=== PATIENT | female | born 1995 | race Two or more races ===

== ENCOUNTER → 2021-11-13 11:10 | Outpatient (BNVA) | payer OTHER, SELFPAY | PROVIDERS: PCP Internal Medicine; Referring Provider Internal Medicine; Visit Provider Physician Assistant Surgical | DX: E66.01 Morbid (severe) obesity due to excess calories (principal); Z68.41 Body mass index [BMI] 40.0-44.9, adult | CPT/HCPCS: 99202 ==

== ENCOUNTER 2021-11-16 12:46 | Outpatient (REF) | payer OTHER, SELFPAY ==
--- NOTE | ~2021-11-16 | XR_ITS ---
EXAMINATION: XR CHEST CLINICAL INFORMATION: Preop. Obesity COMPARISON: None TECHNIQUE: 2 views of the chest were obtained. FINDINGS: No acute significant abnormality is noted involving the heart, lungs, mediastinum, bony thorax or soft tissues. There is a convex right curvature of the dorsal spine estimated at 15 degrees XR/XR chest 2V IMPRESSION: No acute disease
--- NOTE | 2021-11-16 13:05 | ECG_ITS ---
Test Reason : obesity Blood Pressure : / mmHG Vent. Rate : 081 BPM Atrial Rate : 081 BPM P-R Int : 138 ms QRS Dur : 068 ms QT Int : 368 ms P-R-T Axes : 014 021 019 degrees QTc Int : 427 ms Normal sinus rhythm Normal ECG No previous ECGs available Referred By: Mahin Forrester Electronically Signed By:MIRELLA REIS
[2021-11-16 13:06] LABS: MANUAL DIFF FLAG NO
[2021-11-16 14:00] LABS: Basophils Absolute Auto 0.1 X10*3/uL (0.0-0.2); Basophils Percent Auto 1.3 % (0-2); Eosinophils Absolute Auto 0.2 X10*3/uL (0.0-0.4); Eosinophils Percent Auto 2.6 % (0-4); Hematocrit 39.2 % (37.0-47.0); Hemoglobin 11.6 g/dl (12.0-16.0); Imm Gran Abs Auto 0.02 X10*3/uL (0.00-0.03); Imm Gran Pct Auto 0.3 % (0.0-0.4); Lymphocytes Absolute Auto 1.9 X10*3/uL (1.2-4.9); Lymphocytes Percent Auto 30.3 % (20-40); Mean Corpuscular HGB Conc 29.6 g/dl (31.0-35.0); Mean Corpuscular Hemoglobin 23.4 pg (27.0-33.0); Mean Corpuscular Volume 79.2 fL (80.0-98.0); Monocytes Absolute Auto 0.3 X10*3/uL (0.1-1.2); Monocytes Percent Auto 5.4 % (2-11); Neutrophils Absolute Auto 3.8 x10*3/uL (2.0-8.3); Neutrophils Percent Auto 60.1 % (45-73); Platelet Count 439 X10*3/uL (160-400); Red Blood Count 4.95 X10*6/uL (4.20-5.50); Red Cell Distribution Width 15.7 % (11.0-16.0); White Blood Count 6.2 X10*3/uL (4.8-10.8)
[2021-11-16 14:09] LABS: Estimated Average Glucose 148 mg/dL; Hemoglobin A1c % 6.8 %
[2021-11-16 14:53] LABS: Alanine Aminotransferase 23 U/L (0-31); Albumin Level 4.5 g/dL (3.5-5.0); Alkaline Phosphatase 64 U/L (39-117); Anion Gap 15 (12-20); Aspartate Amino Transferase 19 U/L (5-31); Bilirubin Total 0.2 mg/dL (0.0-1.0); Blood Urea Nitrogen 10 mg/dL (9-16); C Reactive Protein 0.94 mg/dL (< or = 0.50); Calcium 9.5 mg/dL (8.4-10.2); Carbon Dioxide 25 mmol/L (22-29); Chloride 104 mmol/L (96-108); Cholesterol 222 mg/dL; Estimated Glomerular Filt Rate > 60; Glucose Random 196 mg/dL (60-115); HDL Cholesterol 40 mg/dL; Iron 31 mcg/dL (30-160); LDL Cholesterol Calculated 164 mg/dl; Percent Iron Saturation 7 % (15-50); Potassium 4.9 mmol/L (3.3-5.1); Sodium 139 mmol/L (135-145); Total Iron Binding Capacity 454 mcg/dL (228-428); Total Protein 7.5 g/dL (6.5-8.0); Triglycerides 93 mg/dL; Unsaturated Iron Binding 423 ug/dL
[2021-11-16 15:04] LABS: Ferritin 5 ng/mL (10-122); Insulin 96 uU/mL (2-29); TSH reflex Free T4 10.13 uIU/mL (0.32-4.0); Vitamin D 25-OH Total 27.8 ng/mL (>30)
[2021-11-16 15:36] LABS: Folate 17.4 ng/mL (> or = 4.0); Vitamin B12 561 pg/mL (200-900)
[2021-11-16 15:39] LABS: Free T4 (Free Thyroxine) 0.97 ng/dL (0.71-1.85)
[2021-11-17 11:02] LABS: Calcium (PTHI) 9.4 mg/dL (8.6-10.2); PTHI 57 pg/mL (16-77)
[2021-11-20 01:47] LABS: Zinc 87 mcg/dL (60-130)
[2021-11-20 10:26] LABS: Vitamin A 29 mcg/dL (38-98)
[2021-11-20 13:21] LABS: Vitamin B1 14 nmol/L (8-30)
== END 2021-11-16 12:47 | disposition home or self-care (01) ==
LOC: HO.LAB 12:46
PROVIDERS: PCP Internal Medicine; Visit Provider Physician Assistant Surgical
DX: E66.01 Morbid (severe) obesity due to excess calories (principal)
CPT/HCPCS: 36415; 71046; 80053; 80061; 82306; 82607; 82728; 82746; 83036; 83525; 83540; 83970; 84425; 84439; 84443; 84590; 84630; 85025; 86140; 93005

== ENCOUNTER 2021-11-25 11:08 | Outpatient (REF) | payer OTHER, SELFPAY ==
[2021-11-26 13:02] LABS: H Pylori Breath Test Negative (Negative)
== END 2021-11-25 11:09 | disposition home or self-care (01) ==
LOC: HO.LNP 11:08
PROVIDERS: PCP Internal Medicine; Referring Provider Internal Medicine; Visit Provider Physician Assistant Surgical
DX: E66.01 Morbid (severe) obesity due to excess calories (principal)
CPT/HCPCS: 83013; 99211

== ENCOUNTER → 2021-12-09 10:11 | Outpatient (BNVA) | payer OTHER, SELFPAY | PROVIDERS: Referring Provider Physician Assistant Surgical; Visit Provider Dietitian, Registered | DX: E66.9 Obesity, unspecified (principal); Z71.3 Dietary counseling and surveillance | CPT/HCPCS: 97802 ==

== ENCOUNTER → 2021-12-14 10:00 | Outpatient (BNVA) | payer OTHER, SELFPAY | PROVIDERS: Referring Provider Physician Assistant Surgical; Visit Provider Counselor Mental Health | DX: F43.21 Adjustment disorder with depressed mood (principal); E66.01 Morbid (severe) obesity due to excess calories; E10.9 Type 1 diabetes mellitus without complications | CPT/HCPCS: 90791 ==

== ENCOUNTER 2022-01-01 09:03 | Outpatient (REF) | payer OTHER, SELFPAY ==
--- NOTE | ~2022-01-01 | US_ITS ---
EXAMINATION: US COMPLETE ABDOMEN WITH LIVER ELASTOGRAPHY CLINICAL INFORMATION: Morbid obesity. COMPARISON: None. TECHNIQUE: Real-time imaging of the abdominal viscera. Noninvasive ultrasound liver fibrosis assessment is performed using Sandra ElastPQ point quantification shear wave elastography (2D-SWE) with a C5-2 MHz transducer. Multiple elastography samples are obtained. FINDINGS: PANCREAS: Normal. The visualized pancreatic head and body are normal in appearance. The remainder of the pancreas is obscured from visualization by the overlying bowel gas. ABDOMINAL AORTA: The proximal and mid aortic segments are normal in caliber. The distal segment is obscured by overlapping bowel gas. INFERIOR VENA CAVA: Visualized portions are normal. LIVER: Normal. The liver demonstrates normal size, contour and echogenicity. No focal lesion or intrahepatic biliary duct dilatation. The right lobe measures 16.6 cm in length. The left lobe measures 11.1 cm in length. Portal flow is towards the liver (hepatopetal). Shear wave liver elastography median stiffness is 1.54 m/s (reference: normal median stiffness is 1.3 m/s or less). IQR/median stiffness to assess sampling precision is 0.06 (reference: good quality data set is IQR/median stiffness of 0.15 or less). GALLBLADDER: A 4 mm nonmobile polyp is incidentally seen. The gallbladder is physiologically distended without evidence of stones, sludge, wall thickening or pericholecystic fluid. COMMON BILE DUCT: Normal in caliber measuring 0.2 cm in diameter. RIGHT KIDNEY: Normal. No hydronephrosis. No renal calculi or focal parenchymal lesions. The kidney measures 10.9 cm in maximum dimension. LEFT KIDNEY: Normal. No hydronephrosis. No renal calculi or focal parenchymal lesions. The kidney measures 11.6 cm in maximum dimension. SPLEEN: Normal. The spleen measures 10.7 cm in maximum dimension. FREE FLUID: None. US/US abdomen comp w elastography IMPRESSION: 1. There is generalized increase in hepatic echotexture, consistent with fatty infiltration or hepatocellular disease. Please correlate clinically. No focal hepatic mass or intrahepatic biliary dilatation is seen. 2. Liver elastography: In the absence of other known clinical signs, measurements rule out compensated advanced chronic liver disease. If there are known clinical signs, further testing may be needed for confirmation. 3. A 4 mm nonmobile gallbladder polyp is incidentally noted. 4. Technically limited ultrasound examination of the pancreatic tail and distal abdominal aorta. REFERENCE: Society of Radiologists in Ultrasound Liver Stiffness Thresholds (2020): LIVER STIFFNESS THRESHOLDS: *Liver Stiffness equal or less than 1.3 m/s: High probability of being normal. *Liver Stiffness less than 1.7 m/s: In the absence of other known clinical signs, rules out compensated advanced chronic liver disease. *Liver Stiffness 1.7-2.1 m/s: Suggestive of compensated advanced chronic liver disease but need further test for confirmation. *Liver Stiffness over 2.1 m/s: Rules in compensated advanced chronic liver disease. *Liver Stiffness over 2.4 m/s: Suggestive of clinically significant portal hypertension. QUALITY OF DATA SET: *IQR/Median value equal or less than 0.15 implies a quality data set. *IQR/Median value over 0.15 implies a poor quality data set. SIGNIFICANT CHANGE FROM PRIOR EXAM: Significant change if liver stiffness measurement is 10% or greater from prior exam. OTHER CONSIDERATIONS: The stage of liver fibrosis may be overestimated in the setting of acute hepatitis, liver inflammation, elevated liver function tests, hepatic vascular congestion, obstructive cholestasis, non-fasting state, and infiltrative diseases such as amyloidosis and lymphoma. In some patients with NAFLD, the liver stiffness thresholds for compensated advanced chronic liver disease may be lower. In causes other than viral hepatitis and NAFLD, liver stiffness thresholds are not well established.
--- NOTE | ~2022-01-01 | FL_ITS ---
EXAMINATION: XR FLUOROSCOPY UPPER GI WITH AIR CLINICAL INFORMATION: Preop. Diabetes. History of gastroparesis. COMPARISON: None TECHNIQUE: Upper GI using thin and thick barium and effervescent granules. FINDINGS: Esophageal motility is normal. No hernia is seen. There is mild gastroesophageal reflux. The stomach and duodenum are normal-appearing. No fold thickening, mass, ulcer or stricture is seen. Contrast passes through the stomach into the small bowel without evidence of gastroparesis. FLUOROSCOPY TIME: 0.4 minutes DOSE AREA PRODUCT: 5.9 jo per centimeter squared. 20 saved fluoroscopic images. FL/FL upper GI w air IMPRESSION: Mild gastroesophageal reflux otherwise unremarkable exam.
== END 2022-01-01 09:04 | disposition home or self-care (01) ==
LOC: HO.US 09:03
PROVIDERS: Visit Provider Physician Assistant Surgical
DX: E66.01 Morbid (severe) obesity due to excess calories (principal)
CPT/HCPCS: 74246; 76705; 76981

== ENCOUNTER 2022-02-11 06:41 | Inpatient (IN) | payer OTHER, SELFPAY ==
[2022-02-02 12:44] VITALS: BMI 40.4
[2022-02-03 10:39] LABS: MANUAL DIFF FLAG NO
[2022-02-03 11:43] LABS: INTERNATIONAL NORM RATIO 1.2 (0.9-1.1); Prothrombin Time 13.3 SEC (10.0-13.1)
[2022-02-03 11:45] LABS: Basophils Absolute Auto 0.1 X10*3/uL (0.0-0.2); Eosinophils Absolute Auto 0.1 X10*3/uL (0.0-0.4); Eosinophils Percent Auto 2.7 % (0-4); Hematocrit 41.2 % (37.0-47.0); Hemoglobin 12.5 g/dl (12.0-16.0); Imm Gran Abs Auto 0.01 X10*3/uL (0.00-0.03); Imm Gran Pct Auto 0.2 % (0.0-0.4); Lymphocytes Absolute Auto 1.8 X10*3/uL (1.2-4.9); Lymphocytes Percent Auto 34.7 % (20-40); Mean Corpuscular HGB Conc 30.3 g/dl (31.0-35.0); Mean Corpuscular Hemoglobin 25.5 pg (27.0-33.0); Mean Corpuscular Volume 83.9 fL (80.0-98.0); Mean Platelet Volume 9.3 fL (9.4-12.3); Monocytes Absolute Auto 0.4 X10*3/uL (0.1-1.2); Monocytes Percent Auto 7.6 % (2-11); Neutrophils Absolute Auto 2.8 x10*3/uL (2.0-8.3); Neutrophils Percent Auto 53.8 % (45-73); Partial Thromboplastin Time 36.2 SEC (26.0-36.4); Platelet Count 374 X10*3/uL (160-400); Red Blood Count 4.91 X10*6/uL (4.20-5.50); Red Cell Distribution Width 17.2 % (11.0-16.0); White Blood Count 5.2 X10*3/uL (4.8-10.8)
[2022-02-03 11:50] LABS: Estimated Average Glucose 148 mg/dL; Hemoglobin A1c % 6.8 %
[2022-02-03 16:01] LABS: Alanine Aminotransferase 16 U/L (0-31); Albumin Level 4.2 g/dL (3.5-5.0); Alkaline Phosphatase 71 U/L (39-117); Anion Gap 15 (12-20); Aspartate Amino Transferase 15 U/L (5-31); Bilirubin Total 0.4 mg/dL (0.0-1.0); Blood Urea Nitrogen 11 mg/dL (9-16); C Reactive Protein 0.98 mg/dL (< or = 0.50); Calcium 9.3 mg/dL (8.4-10.2); Carbon Dioxide 27 mmol/L (22-29); Chloride 105 mmol/L (96-108); Cholesterol 155 mg/dL; Creatinine Clr Calc Pharmacy 125.7; Estimated Glomerular Filt Rate > 60; Glucose Random 50 mg/dL (60-115); HDL Cholesterol 35 mg/dL; Insulin 72 uU/mL (2-29); LDL Cholesterol Calculated 106 mg/dl; Sodium 143 mmol/L (135-145); TSH reflex Free T4 5.87 uIU/mL (0.32-4.0); Total Protein 7.1 g/dL (6.5-8.0); Triglycerides 72 mg/dL
[2022-02-03 16:33] LABS: Free T4 (Free Thyroxine) 1.07 ng/dL (0.71-1.85)
--- NOTE | 2022-02-05 22:25 | P.HPSUR_ITS ---
Pre-Procedural Eval Section A Date of Service: 02/05/22 The patient is an INPATIENT: Yes The History & Physical has been completed within 30 days and I have reviewed it.: Yes Section B Chief Complaint: Morbid (severe) obesity due to excess calories Relevant Family History (Specify if Yes): No Relevant Social History: None Present Medications: None Medical History: No relevant PMH History of Previous Operations: No relevant previous surgery Allergies: Allergies Allergy/AdvReac Type Severity Reaction Status Date / Time shrimp Allergy Hives, Verified 02/03/22 11:05 Swelling, Itchy Throat insulin detemir AdvReac Intermediate Rash Verified 02/03/22 11:05 [From Levemir U-100 Insulin] metformin AdvReac Intermediate Diarrhea Verified 02/03/22 11:05 Review of Systems Sugical H&P ROS: Negative: Constitution, Cardiovascular, Respiratory, Neurological, Psychiatric, Hem-Onc, Allergic/Immunologic, Gastrointestinal, Genitourinary, Musculoskeletal, Integumentary, Endocrine and Eyes/Ear s/Nose/Throat Exam Surgical H&P Exam: Normal: HEENT, Normal: Heart, Normal: Lungs, Normal: Extremities, Normal: Abdomen, Normal: Skin and Normal: Neurological Plan Diagnosis/Plan: Unchanged I have reviewed the history and physical and performed a pertinent physical examination on my patient. No changes have occurred unless specified. Time Spent With Patient Time: Total time managing care of this patient today ____ minutes.
--- NOTE | 2022-02-10 09:36 | HO.ANESPROP2 ---
Documented by User: Amanda Rajput NP 02/10/22 09:37 HPI - Anesthesia Eval Consult details Narrative: 26yo F for Gastrectomy Sleeve,EGD,Possible Diaphragmatic Hernia,possible ventral Hernia,possible open PMFSH Active Problems Active Problems: All Active Problems (Updated 02/02/22 @ 12:43 by Shreya Lazaro, [place]) Insulin dependent type 1 diabetes mellitus (Acute) Hypercholesterolemia (Acute) Hypothyroid (Acute) Morbid obesity (Acute) Adjustment disorder with depressed mood (Acute) Insomnia (Acute) Past Medical History Medical History Acid reflux Diabetes Elevated cholesterol History of COVID-19 History of hypothyroidism Insomnia Irregular menses Obesity Family History Family History Mother Thyroid condition Father No problems noted. 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 If so, by whom?: No Are you DNR?: No Advance Directives: No Advance Directives Information Provided: Yes (Info mailed w/ pre-op instructions) Advance Directives on File: No Recently lost weight without trying: No How much weight loss: 14-23 pounds Eating poorly because of decreased appetite: No Nutrition screen score: 2 Nutrition Risks: No Nutritional Risk Patient : No FDLMP: 3 weeks ago Irreg p : No Poor oral hygiene: No (Has removable invisalign) Meds Allergies Allergy/AdvReac Type Severity Reaction Status Date / Time shrimp Allergy Hives, Verified 02/03/22 11:05 Swelling, Itchy Throat insulin detemir AdvReac Intermediate Rash Verified 02/03/22 11:05 [From Levemir U-100 Insulin] metformin AdvReac Intermediate Diarrhea Verified 02/03/22 11:05 Home Medications Medication Instructions Recorded Confirmed Last Taken Type lovastatin 40 mg tablet 40 mg PO DAILY 09/29/21 02/02/22 Unknown History insulin glargine 100 unit/mL (3 40 unit subcut BEDTIME 11/13/21 02/02/22 Unknown History mL) subcutaneous pen (Lantus Solostar U-100 Insulin) multivitamin 1 tab PO DAILY 11/13/21 02/02/22 Unknown History levothyroxine 150 mcg tablet 1 tab PO QAM 02/02/22 02/02/22 Unknown History Exam Exam Date and Time: February 10, 2022 0936 Height,Weight and Vital Signs: Height 4 ft 11 in Weight 90.718 kg Pertinent Lab Results Pertinent Lab Results: Laboratory Tests 02/03/22 02/03/22 02/03/22 10:32 10:37 10:37 WBC 5.2 RBC 4.91 Hgb 12.5 Hct 41.2 MCV 83.9 MCH 25.5 L MCHC 30.3 L RDW 17.2 H Plt Count 374 MPV 9.3 L Immature Gran % (Auto) 0.2 Neut % (Auto) 53.8 Lymph % (Auto) 34.7 Terrell % (Auto) 7.6 Eos % (Auto) 2.7 Baso % (Auto) 1.0 Lymph # (Auto) 1.8 Terrell # (Auto) 0.4 Eos # (Auto) 0.1 Baso # (Auto) 0.1 Abs Immat Gran (auto) 0.01 Absolute Neuts (auto) 2.8 Absolute Nucleated RBC 0.000 Nucleated RBC % (auto) 0.0 PT 13.3 H INR 1.2 H APTT 36.2 Sodium Potassium Chloride Carbon Dioxide Anion Gap BUN Creatinine Estim Creat Clear Calc Estimated GFR Random Glucose Estimat Average Glucose Hemoglobin A1c % Insulin Level Calcium Total Bilirubin AST ALT Alkaline Phosphatase C-Reactive Protein Total Protein Albumin Triglycerides Cholesterol LDL Cholesterol, Calc HDL Cholesterol TSH Free T4 Blood Type A Negative Antibody Screen NEGATIVE 02/03/22 02/03/22 10:37 10:37 WBC RBC Hgb Hct MCV MCH MCHC RDW Plt Count MPV Immature Gran % (Auto) Neut % (Auto) Lymph % (Auto) Terrell % (Auto) Eos % (Auto) Baso % (Auto) Lymph # (Auto) Terrell # (Auto) Eos # (Auto) Baso # (Auto) Abs Immat Gran (auto) Absolute Neuts (auto) Absolute Nucleated RBC Nucleated RBC % (auto) PT INR APTT Sodium 143 Potassium 4.0 Chloride 105 Carbon Dioxide 27 Anion Gap 15 BUN 11 Creatinine 0.66 Estim Creat Clear Calc 125.7 Estimated GFR > 60 Random Glucose 50 L* Estimat Average Glucose 148 Hemoglobin A1c % 6.8 Insulin Level 72 H Calcium 9.3 Total Bilirubin 0.4 AST 15 ALT 16 Alkaline Phosphatase 71 C-Reactive Protein 0.98 H Total Protein 7.1 Albumin 4.2 Triglycerides 72 Cholesterol 155 LDL Cholesterol, Calc 106 HDL Cholesterol 35 TSH 5.87 H Free T4 1.07 Blood Type Antibody Screen Narrative Narrative: EKG 10/2021 Vent. Rate : 081 BPM ? ? Atrial Rate : 081 BPM ?? P-R Int : 138 ms? QRS Dur : 068 ms ? ? QT Int : 368 ms ? ? ? P-R-T Axes : 014 021 019 degrees ?? QTc Int : 427 ms ? Normal sinus rhythm Normal ECG No previous ECGs available Assessment and Plan Assessment Anesthesia Assessment: Chart Reviewed Documented by User: Jhoana Peterson MD 02/11/22 08:24 [facility] Active Problems Active Problems: All Active Problems (Updated 02/02/22 @ 12:43 by Shreya Lazaro, [place]) Insulin dependent type 1 diabetes mellitus (Acute). Took full dose of insulin last night. BS 69. Patient symptomatic. D5W ordered Hypercholesterolemia (Acute) Hypothyroid (Acute) Morbid obesity (Acute) BMI 40.4 Adjustment disorder with depressed mood (Acute) Insomnia (Acute) Sleep study- Patient states was told not significant enough for diagnosis of ALMA DELIA. CPAP was not recommended. Results of sleep study not available Past Medical History Medical History Acid reflux Diabetes Elevated cholesterol History of COVID-19 History of hypothyroidism Insomnia Irregular menses Obesity Family History Family History Mother Thyroid condition Father No problems noted. 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 If so, by whom?: No Are you DNR?: No Advance Directives: No Advance Directives Information Provided: Yes (Info mailed w/ pre-op instructions) Advance Directives on File: No Recently lost weight without trying: No How much weight loss: 14-23 pounds Eating poorly because of decreased appetite: No Nutrition screen score: 2 Nutrition Risks: No Nutritional Risk Patient : No FDLMP: 3 weeks ago Irreg p : No Poor oral hygiene: No (Has removable invisalign) Meds Allergies Allergy/AdvReac Type Severity Reaction Status Date / Time shrimp Allergy Hives, Verified 02/03/22 11:05 Swelling, Itchy Throat insulin detemir AdvReac Intermediate Rash Verified 02/03/22 11:05 [From Levemir U-100 Insulin] metformin AdvReac Intermediate Diarrhea Verified 02/03/22 11:05 Home Medications Medication Instructions Recorded Confirmed Last Taken Type lovastatin 40 mg tablet 40 mg PO DAILY 09/29/21 02/02/22 Unknown History insulin glargine 100 unit/mL (3 40 unit subcut BEDTIME 11/13/21 02/02/22 Unknown History mL) subcutaneous pen (Lantus Solostar U-100 Insulin) multivitamin 1 tab PO DAILY 11/13/21 02/02/22 Unknown History levothyroxine 150 mcg tablet 1 tab PO QAM 02/02/22 02/02/22 Unknown History Exam Height,Weight and Vital Signs: Height 4 ft 11 in Weight 90.718 kg Vital Signs Temp Pulse Resp BP Pulse Ox O2 Del Method 02/11/22 07:14 98.1 F 96 15 127/84 97 Room Air Pertinent Lab Results Pertinent Lab Results: Laboratory Tests 02/03/22 02/03/22 02/03/22 10:32 10:37 10:37 WBC 5.2 RBC 4.91 Hgb 12.5 Hct 41.2 MCV 83.9 MCH 25.5 L MCHC 30.3 L RDW 17.2 H Plt Count 374 MPV 9.3 L Immature Gran % (Auto) 0.2 Neut % (Auto) 53.8 Lymph % (Auto) 34.7 Terrell % (Auto) 7.6 Eos % (Auto) 2.7 Baso % (Auto) 1.0 Lymph # (Auto) 1.8 Terrell # (Auto) 0.4 Eos # (Auto) 0.1 Baso # (Auto) 0.1 Abs Immat Gran (auto) 0.01 Absolute Neuts (auto) 2.8 Absolute Nucleated RBC 0.000 Nucleated RBC % (auto) 0.0 PT 13.3 H INR 1.2 H APTT 36.2 Sodium Potassium Chloride Carbon Dioxide Anion Gap BUN Creatinine Estim Creat Clear Calc Estimated GFR Random Glucose Estimat Average Glucose Hemoglobin A1c % Insulin Level Calcium Total Bilirubin AST ALT Alkaline Phosphatase C-Reactive Protein Total Protein Albumin Triglycerides Cholesterol LDL Cholesterol, Calc HDL Cholesterol TSH Free T4 Blood Type A Negative Antibody Screen NEGATIVE 02/03/22 02/03/22 10:37 10:37 WBC RBC Hgb Hct MCV MCH MCHC RDW Plt Count MPV Immature Gran % (Auto) Neut % (Auto) Lymph % (Auto) Terrell % (Auto) Eos % (Auto) Baso % (Auto) Lymph # (Auto) Terrell # (Auto) Eos # (Auto) Baso # (Auto) Abs Immat Gran (auto) Absolute Neuts (auto) Absolute Nucleated RBC Nucleated RBC % (auto) PT INR APTT Sodium 143 Potassium 4.0 Chloride 105 Carbon Dioxide 27 Anion Gap 15 BUN 11 Creatinine 0.66 Estim Creat Clear Calc 125.7 Estimated GFR > 60 Random Glucose 50 L* Estimat Average Glucose 148 Hemoglobin A1c % 6.8 Insulin Level 72 H Calcium 9.3 Total Bilirubin 0.4 AST 15 ALT 16 Alkaline Phosphatase 71 C-Reactive Protein 0.98 H Total Protein 7.1 Albumin 4.2 Triglycerides 72 Cholesterol 155 LDL Cholesterol, Calc 106 HDL Cholesterol 35 TSH 5.87 H Free T4 1.07 Blood Type Antibody Screen Lab Results 02/03/22 02/03/22 02/03/22 Range/Units 10:32 10:37 10:37 WBC 5.2 (4.8-10.8) X10*3/uL RBC 4.91 (4.20-5.50) X10*6/uL Hgb 12.5 (12.0-16.0) g/dl Hct 41.2 (37.0-47.0) % MCV 83.9 (80.0-98.0) fL MCH 25.5 L (27.0-33.0) pg MCHC 30.3 L (31.0-35.0) g/dl RDW 17.2 H (11.0-16.0) % Plt Count 374 (160-400) X10*3/uL MPV 9.3 L (9.4-12.3) fL Immature Gran % (Auto) 0.2 (0.0-0.4) % Neut % (Auto) 53.8 (45-73) % Lymph % (Auto) 34.7 (20-40) % Terrell % (Auto) 7.6 (2-11) % Eos % (Auto) 2.7 (0-4) % Baso % (Auto) 1.0 (0-2) % Lymph # (Auto) 1.8 (1.2-4.9) X10*3/uL Terrell # (Auto) 0.4 (0.1-1.2) X10*3/uL Eos # (Auto) 0.1 (0.0-0.4) X10*3/uL Baso # (Auto) 0.1 (0.0-0.2) X10*3/uL Abs Immat Gran (auto) 0.01 (0.00-0.03) X10*3/uL Absolute Neuts (auto) 2.8 (2.0-8.3) x10*3/uL Absolute Nucleated RBC 0.000 (0.0-0.012) X10*3/uL Nucleated RBC % (auto) 0.0 (0.0-0.2) /100WBC PT 13.3 H (10.0-13.1) SEC INR 1.2 H (0.9-1.1) APTT 36.2 (26.0-36.4) SEC Sodium (135-145) mmol/L Potassium (3.3-5.1) mmol/L Chloride (96-108) mmol/L Carbon Dioxide (22-29) mmol/L Anion Gap (12-20) BUN (9-16) mg/dL Creatinine (0.5-1.4) mg/dL Estim Creat Clear Calc Estimated GFR POC Glucose (60-115) mg/dL Random Glucose (60-115) mg/dL Estimat Average Glucose mg/dL Hemoglobin A1c % % Insulin Level (2-29) uU/mL Calcium (8.4-10.2) mg/dL Total Bilirubin (0.0-1.0) mg/dL AST (5-31) U/L ALT (0-31) U/L Alkaline Phosphatase (39-117) U/L C-Reactive Protein (< or = 0.50) mg/dL Total Protein (6.5-8.0) g/dL Albumin (3.5-5.0) g/dL Triglycerides mg/dL Cholesterol mg/dL LDL Cholesterol, Calc mg/dl HDL Cholesterol mg/dL TSH (0.32-4.0) uIU/mL Free T4 (0.71-1.85) ng/dL Urine Test (NEGATIVE) COVID-19 ([facility]) (Negative) COVID-19 Clin Com Blood Type A Negative Antibody Screen NEGATIVE 02/03/22 02/03/22 02/10/22 Range/Units 10:37 10:37 12:39 WBC (4.8-10.8) X10*3/uL RBC (4.20-5.50) X10*6/uL Hgb (12.0-16.0) g/dl Hct (37.0-47.0) % MCV (80.0-98.0) fL MCH (27.0-33.0) pg MCHC (31.0-35.0) g/dl RDW (11.0-16.0) % Plt Count (160-400) X10*3/uL MPV (9.4-12.3) fL Immature Gran % (Auto) (0.0-0.4) % Neut % (Auto) (45-73) % Lymph % (Auto) (20-40) % Terrell % (Auto) (2-11) % Eos % (Auto) (0-4) % Baso % (Auto) (0-2) % Lymph # (Auto) (1.2-4.9) X10*3/uL Terrell # (Auto) (0.1-1.2) X10*3/uL Eos # (Auto) (0.0-0.4) X10*3/uL Baso # (Auto) (0.0-0.2) X10*3/uL Abs Immat Gran (auto) (0.00-0.03) X10*3/uL Absolute Neuts (auto) (2.0-8.3) x10*3/uL Absolute Nucleated RBC (0.0-0.012) X10*3/uL Nucleated RBC % (auto) (0.0-0.2) /100WBC PT (10.0-13.1) SEC INR (0.9-1.1) APTT (26.0-36.4) SEC Sodium 143 (135-145) mmol/L Potassium 4.0 (3.3-5.1) mmol/L Chloride 105 (96-108) mmol/L Carbon Dioxide 27 (22-29) mmol/L Anion Gap 15 (12-20) BUN 11 (9-16) mg/dL Creatinine 0.66 (0.5-1.4) mg/dL Estim Creat Clear Calc 125.7 Estimated GFR > 60 POC Glucose (60-115) mg/dL Random Glucose 50 L* (60-115) mg/dL Estimat Average Glucose 148 mg/dL Hemoglobin A1c % 6.8 % Insulin Level 72 H (2-29) uU/mL Calcium 9.3 (8.4-10.2) mg/dL Total Bilirubin 0.4 (0.0-1.0) mg/dL AST 15 (5-31) U/L ALT 16 (0-31) U/L Alkaline Phosphatase 71 (39-117) U/L C-Reactive Protein 0.98 H (< or = 0.50) mg/dL Total Protein 7.1 (6.5-8.0) g/dL Albumin 4.2 (3.5-5.0) g/dL Triglycerides 72 mg/dL Cholesterol 155 mg/dL LDL Cholesterol, Calc 106 mg/dl HDL Cholesterol 35 mg/dL TSH 5.87 H (0.32-4.0) uIU/mL Free T4 1.07 (0.71-1.85) ng/dL Urine Test (NEGATIVE) COVID-19 ([facility]) Negative (Negative) COVID-19 Clin Com See Note Blood Type Antibody Screen 02/11/22 02/11/22 02/11/22 Range/Units 06:45 06:54 08:03 WBC (4.8-10.8) X10*3/uL RBC (4.20-5.50) X10*6/uL Hgb (12.0-16.0) g/dl Hct (37.0-47.0) % MCV (80.0-98.0) fL MCH (27.0-33.0) pg MCHC (31.0-35.0) g/dl RDW (11.0-16.0) % Plt Count (160-400) X10*3/uL MPV (9.4-12.3) fL Immature Gran % (Auto) (0.0-0.4) % Neut % (Auto) (45-73) % Lymph % (Auto) (20-40) % Terrell % (Auto) (2-11) % Eos % (Auto) (0-4) % Baso % (Auto) (0-2) % Lymph # (Auto) (1.2-4.9) X10*3/uL Terrell # (Auto) (0.1-1.2) X10*3/uL Eos # (Auto) (0.0-0.4) X10*3/uL Baso # (Auto) (0.0-0.2) X10*3/uL Abs Immat Gran (auto) (0.00-0.03) X10*3/uL Absolute Neuts (auto) (2.0-8.3) x10*3/uL Absolute Nucleated RBC (0.0-0.012) X10*3/uL Nucleated RBC % (auto) (0.0-0.2) /100WBC PT (10.0-13.1) SEC INR (0.9-1.1) APTT (26.0-36.4) SEC Sodium (135-145) mmol/L Potassium (3.3-5.1) mmol/L Chloride (96-108) mmol/L Carbon Dioxide (22-29) mmol/L Anion Gap (12-20) BUN (9-16) mg/dL Creatinine (0.5-1.4) mg/dL Estim Creat Clear Calc Estimated GFR POC Glucose 69 138 H (60-115) mg/dL Random Glucose (60-115) mg/dL Estimat Average Glucose mg/dL Hemoglobin A1c % % Insulin Level (2-29) uU/mL Calcium (8.4-10.2) mg/dL Total Bilirubin (0.0-1.0) mg/dL AST (5-31) U/L ALT (0-31) U/L Alkaline Phosphatase (39-117) U/L C-Reactive Protein (< or = 0.50) mg/dL Total Protein (6.5-8.0) g/dL Albumin (3.5-5.0) g/dL Triglycerides mg/dL Cholesterol mg/dL LDL Cholesterol, Calc mg/dl HDL Cholesterol mg/dL TSH (0.32-4.0) uIU/mL Free T4 (0.71-1.85) ng/dL Urine Test NEGATIVE (NEGATIVE) COVID-19 ([facility]) (Negative) COVID-19 Clin Com Blood Type Antibody Screen Airway Mallampati Class: II TM Dist: >3cm Neck ROM: Full Loose/Missing/Broken Teeth: No (Invisalign. Denies broken, loose, missing teeth) Heart: RRR Lungs: CTAB Assessment and Plan Assessment Anesthesia Assessment: Anesthesia Plan Discussed Final Anesthetic Review Family History of Problems with Anesthesia: No History of Problems with Anesthesia: No NPO: Yes ASA Class: III Final Preanesthetic Review: No Changes in Pt Med Stat, Meds/Allgs Chart Reviewed, Consent Obtained/Reviewed and Anes Risks/Benef Reviewed Patient Risk: Intermediate Procedure Risk: Intermediate Assessment/Block/Sedation in SS: Assess/Block/Sedation-SS Anesthetic Plan Anesthetic Plan: GA Disposition: Standard PACU
[2022-02-10 13:16] LABS: COVID-19 Test Negative (Negative); IDNOW Serial# BCCEAD1C
[2022-02-11] VITALS (15 sets, daily range): BP systolic 121–153; BP diastolic 68–106; PULSE 79–98; RESP 15–18; TEMP 36.7–37.4; O2SAT 93–100
--- OUTSIDE RECORDS SUMMARY | 2022-02-11 06:45 | XMS_ITS ---
:1995 Author Care Team Providers Name Role Phone STEPH MCCONNELLJARON Primary Care Provider [phone] Allergies Code Code System Name Reaction Severity Status Onset 680 RxNorm Metformin ? ? Active ? Medications Name Status Start Date Stop Date ? ? amoxicillin 875 mg tablet Active ? Not av ailable Take 1 tablet every 12 hours by oral route for 7 days. Baqsimi 3 mg/actuation nasal spray Completed ? 09/08/2021 BD Ava 2nd Gen Pen Needle 32 gauge x /32 Active ? Not available CeQur Simplicity 2 unit device Completed ? 0 09/08/2021 Dexcom G6 Sensor device Completed ? 09/09/19 Dexcom G6 Transmitter device Completed ? epinephrine 0.3 mg/0.3 mL injection, auto-injector Active ? Not available INJECT 1 PEN DIRECTED NEEDED (ANAPHYLAXIS). MUST GO TO ER AFTER USING famotidine 20 mg tablet Completed ? 09/09/19 TAKE 1 TABLET BY MOUTH 2 TIMES DAILY NEEDED FOR HEARTBURN ferrous sulfate 325 mg (65 mg iron) tablet Completed ? 09/08/2021 TAKE 1 TABLET BY MOUTH EVERY OTHER DAY Humalog KwikPen (U-100) Insulin 100 unit/mL Completed ? 09/08/2021 subcutaneous Humalog KwikPen Insulin Active ? Not avai lable ibuprofen 800 mg tablet Completed ? 09/09/19 22 TAKE 1 TABLET BY MOUTH EVERY 8 HOURS NEEDED FOR PAIN FOR UP TO 30 DAYS. Lantus Solostar U-100 Insulin Active ? No t available Lantus Solostar U-100 Insulin 100 unit/mL (3 mL) Completed ? 09/08/2021 subcutaneous pen levothyroxine Active ? Not available lovastatin Completed ? 09/08/2021 lovastatin 40 mg tablet Active ? Not avai lable norgestimate 0.25 mg-ethinyl estradiol 35 mcg tablet Completed ? 09/08/2021 TAKE 1 TABLET BY MOUTH EVERY DAY omeprazole 20 mg capsule,delayed release Completed ? 09/08/2021 TAKE 1 CAPSULE BY MOUTH EVERY DAY ondansetron 4 mg disintegrating tablet Completed ? 09/08/2021 Ozempic 0.25 mg or 0.5 mg (2 mg/1.5 mL) subcutaneous Completed ? 09/08/2021 pen injector Slow Fe 142 mg (45 mg iron) tablet,extended release Completed ? 09/08/2021 TAKE 1 TABLET BY MOUTH ON TUESDAY, DAY, AND TUESDAY FOR 24 DAYS. DO NOT TAKE WITH FOOD. Sprintec (28) Completed ? 09/08/2021 Synthroid 137 mcg tablet Active ? Not patience ilable tizanidine 4 mg tablet Completed ? 2 TAKE 1 TABLET BY MOUTH EVERY 8 HOURS NEEDED FOR MUSCLE SPASM Problems None recorded. Procedures None recorded. Results Lab Results Date Name Specimen Result Interpretation Description Value Range Status Address ? 09/08/2021 SARS CoV 2 RNA ? Result negative ? ? [facility] ([place]: [place] QL, paper roller-PCR, [address], Respiratory [facility] ield Specimen 08/30/2019 ? Hcg negative ? ? B yst [facility] Test, [place] [facility] [place] [address] [facility], [place] 08/24/2019 Culture, Urine Urine ? Specimen urine ? Fi nal [facility] Description clean Refer ence catch/mids Labora tories: tream [address], [place] ? ? Urine ? Special none ? Final [facility] Requests Referenc e Laboratori es: [address], [place] ? ? Urine ? Culture no growth ? Final [facility] ate Reference Laboratori es: [address], [place] ? ? Urine ? Report Status final ? Final [facility] 08/25/2019 Refere wve Laboratori es: [address], [place] 08/24/2019 Glucose, ? Blood 215 ? ? Byst [facility] Fingerstick, Glucose: mg/dl Feeding Blood [place]: [address] [facility], [place] 08/24/2019 Urinalysis, ? Leukocytes Negative ? ? Byst [facility] Dipstick [place]: [address], Feeding [place] ? ? ? Nitrite negative ? ? Byst U cc Feeding [place]: [address], [place] ? ? ? Urobilinogen 0.2-Normal ? ? Byst [facility] Feeding [place]: [address], [place] ? ? ? Protein Negative ? ? Byst U cc Feeding [place]: [address], [place] ? ? ? Ph 5.0 ? ? By[facility] Feeding [place]: [address], Feeding [place] ? ? ? Blood Negative(n ? ? Byst U cc on-hemolyz Feedin g ed) [place]: [address], Feeding [place] ? ? ? Specific 1.010 ? ? Byst [facility] [place] Feeding [place]: [address], Feeding [place] ? ? ? Ketone Negative ? ? Byst c Feeding [place]: [address], Feeding [place] ? ? ? Bilirubin Negative ? ? Byst [facility] Feeding [place]: [address], Feeding [place] ? ? ? Glucose 2000 or ? ? Byst [facility] more Feeding [place]: [address], Feeding [place] ? ? ? Appearance clear ? ? Byst [facility] Feeding [place]: [address], Feeding [place] ? ? ? Color yellow ? ? Byst [facility] Feeding [place]: [address], Feeding [place] ? Rapid SARS CoV ? Result positive ? ? Byst [facility] + SARS CoV 2 [place]: 57 Ag, QL [place], [address], Respiratory [place] Specimen Past Encounters Encounter Date Diagnosis Provider 09/08/2021 Acute Right Otitis Media XIMENA [place]: [address] [place] [address], Ph. [phone] Social History Tobacco Smoking Status Never Smoker Vaccine List None recorded. Plan of Care Patient Instructions Keep ears dry x 1 week Reminders Provider Appointments None recorded. ? ? Lab None recorded. ? ? Referral None recorded. ? ? Procedures None recorded. ? ? Surgeries None recorded. ? ? Imaging None recorded. ? ? Vitals 09/08/2021 03:15PM Established Patient Blood Pressure 129/85 mm[Hg] 08/24/2019 02:15PM New Patient Blood Pressure 125/83 mm[Hg]
[2022-02-11 06:49] LABS: UPreg QC Valid YES; Urine Pregnancy NEGATIVE (NEGATIVE)
[2022-02-11 07:05] LABS: Glucose, Whole Blood 69 mg/dL (60-115)
[2022-02-11] MEDS: Lactated Ringers 1,000 ML 999 ML IV (07:19)
[2022-02-11] MEDS: Dextrose 5 % 250 ML IV (07:28)
[2022-02-11 08:13] LABS: Glucose, Whole Blood 138 mg/dL (60-115)
--- NOTE | 2022-02-11 08:13 | PM.OP ---
Brief Operative Note Date of Service: 02/11/22 Pre-op diagnosis: Morbid obesity with comorbidities (see below) Post-op diagnosis: same (& extensive abdominal adhesions) Procedure: INITIAL PATIENT BMI ON PRESENTATION AT OUR OFFICE: 44.3 kg/m2 LAST BMI BEFORE SURGERY: 40.2 kg/m2 COMORBIDITIES: Type I insulin-dependent diabetes, hyperlipidemia, GERD, liver steatosis, liver fibrosis, gallbaldder polyp ?The patient presented to the Weight Management Program with significant obesity that was negatively impacting the patient's comorbidities as listed above.? The program is a phased program with a special focus on preoperative medical weight management to promote substantial weight loss and prepare the patients for the second phase of the program: bariatric surgery. The patient participated in an intensive weekly lifestyle ?intervention and exercise program during which the patient ?has lost between the initial office visit and the last preoperative visit 18.8lbs, or 8.58% of initial actual body weight. It was deemed appropriate for the patient to now have bariatric surgery. In light of the current Covid-19 pandemic and the well documented strong association of obesity and increased risk of worse outcomes if infected with Covid-19 (REFERENCES:https://pubmed.ncbi.nlm.nih.gov/18471940/,?https://pubmed.ncbi.nlm.nih.gov/98078635/), any delay in undergoing bariatric surgery may lead to the patient's worsening health condition and increased?risk of more severe Covid-19 disease if infected. In addition a recent?study from [facility] published in [facility] on 02/16/2021 ([email or web address]) found that, among patients with obesity, substantial weight loss achieved with surgery was associated with improved outcomes of COVID-19 infection. The findings suggest that obesity can be a modifiable risk factor for the severity of COVID-19 infection. In addition, the patient met the BMI-criteria for bariatric surgery based on the BMI on initial presentation. The patient should not be penalized for achieving such weight loss because ?it is not sustainable long-term without surgical intervention and it was achieved in preparation for bariatric surgery ?under my direction and based on my published research ([email or web address]).[email or web address] and?https://www.soard.org/article/[email or web address](60)12453-X/pdf) ?that a 10% preoperative weight loss improves long-term weight loss after surgery and reduces perioperative complications.? Insurance carriers such as [facility] have endorsed my recommendations ?and have included in their policies criteria to include a 10% preoperative weight loss requirement. PROCEDURE: Esophago-gastroscopy, laparoscopic lysis of adhesions, laparoscopic sleeve gastrectomy and laparoscopic gastropexy INDICATIONS: This is a 26 year-old female who was electively scheduled for laparoscopic, possibly open sleeve gastrectomy. The risks and complications of the procedure were discussed with the patient in advance, particularly the possibility of ; pulmonary embolism; staple line leak; bleeding; GERD; cardiac, pulmonary, or renal complications; as well as long-term problems such as insufficient weight loss, vitamin deficiency, strictures, or ulcers. The patient understood all the risks, and was in agreement to proceed with surgery. DESCRIPTION OF PROCEDURE: After informed consent was obtained from the patient, the patient was given preoperative antibiotics, and was transferred to the operating room. After successful induction of general anesthesia, pneumatic compression devices were placed on both lower extremities. An upper endoscopy was performed next. The oropharynx and esophagus appeared to be within normal limits. There was no diaphragmatic hernia present consistent with the findings of the preoperative upper GI. The stomach was entered. Then after all fluid and air were suctioned and the stomach was fully decompressed, the scope was withdrawn and secured in the mid esophagus. The patient was then prepped and draped in the usual sterile manner, and abdominal access was established at the right upper quadrant with the Keith technique. A 12 mm blunt port was inserted, and the abdomen was insufflated with CO2 to a pressure of 15 mmHg. Under direct visualization, additional ports were placed, specifically two 5 mm Versi-step ports to the left upper quadrant, and a 5 mm Versi-Step port to the right upper quadrant. 1% lidocaine plain was used to infiltrate all port sites as well as all fascia defects. Following that, the patient was placed in a steep reverse Trendelenburg position. An additional 5 mm port was placed to the right flank for the Mediflex retractor that was used to retract the left lobe of the liver. The gastro-esophageal fat pad was opened with the ultrasonic device (Thunderbeat, Olympus) and the anterior esophagus and hiatus were exposed. The angle of His was opened with the ultrasonic device the fundus of the stomach from any diaphragmatic and splenic attachments. I then opened the gastrocolic ligament between the transverse colon and the greater curvature of the stomach with the ultrasonic device to enter the lesser sac and facilitate the ligation of the short gastric vessels. I started at a mid-point along the greater curvature and using the Thunderbeat, all short gastric vessels were divided all the way to the angle of His until the left jeannette was completely dissected at its entirety. I then divided the gastro-colic ligament distally to a distance of about 3-4 cm proximal to the pylorus. There were extensive congenital adhesions between the pancreas and posterior gastric wall. Those were lysed completely with the ultrasonic device. The adhesions were so dense that a large upper splenic pole vessel was densely adhrerent to the posterior gastric wall. It required very careful dissection to detach it and preserve it. Additionally there were adhesions beteween the lesser sac and the left lobe of the liver which were also lysed. Adhesiolysis took approximately 60 min to complete. The stomach was then divided transversely with one Endo VALERIA-45 purple, 2 VALERIA-60 purple loads, two VALERIA-45 orange loads and one VALERIA-60 articulating orange loads using the AEON stapler and loads. Every effort was made that the gastric sleeve had a tubular shape and an even caliber throughout. Once the sleeve resection was completed, the staple line of the gastric sleeve was reinforced with Hemoclips. The resected stomach was retrieved without difficulty from the Keith port. A gastropexy was then performed in order to prevent postoperative GERD and partial gastric volvulus. Several interrupted 2.0 Surgidac sutures were placed between the sleeve's staple line and the previously divided greater omentum and gastro-colic ligament using the Endo-Stitch device. ?An upper endoscopy was performed. There was no narrowing at the GE junction. The scope was easily advanced all the way to the pylorus which was clearly visualized. There was no narrowing anywhere and the sleeve's caliber was even throughout. The sleeve's staple line was inspected and there was no evidence of ischemia, bleeding or dehiscence. At that point the gastroscope was withdrawn from the patient?s mouth while we were decompressing the bowel and the stomach from any remaining air. I looked into the lesser sac to see how the sleeve was situating and it was situating well. There was no bleeding from the staple line, spleen, or short gastric vessels. The Mediflex retractor was removed, and the undersurface of the liver was inspected and there was no bleeding. The patient was placed in supine position. I closed the fascial defect of the 12 mm port site with a figure of eight #1 Polysorb suture. Then 30cc of Ropivacaine plain with 10 mg of Dexamethasone were used to infiltrate the fascial closure as well as all skin incisions. A total of 7ml of Zynrelef was applied in the Keith wound. At this point, the abdomen was deflated, all ports were removed under direct vision, and no bleeding was noted from any of the port sites. The skin incisions were irrigated with saline and were closed with 4-0 absorbable monofilament sutures. Steri-Strips and OpSites were used to cover all incisions. The patient was extubated and was transferred in stable condition to the recovery room for further care. I was present and performed all dow parts of the procedure. Mr. Forrester was the fitter's assistant. There were no residents to assist with this case. Anton Perez MD, PhD, FACS Surgeon: Uriah Perez MD Anesthesia: GETA, local and other (TAP block and ml of Zynrelef) Was an Drywall Foreman used for this Procedure?: No Drywall Foreman: Mahin Forrester Estimated blood loss (mL): 10 Urine output (mL): 0 (No Stern to record output) Pathology: other (Stomach) Condition: stable Disposition: PACU
--- NOTE | 2022-02-11 08:17 | PM.PNGS ---
Subjective Subjective Date of Service: 02/12/22 Interval history: Patient has mild incisional pain, but was able to ambulate and use the incentive spirometer. She is tolerating phase 1 bariatric diet Physical Exam Vital Signs: Vital Signs: Last Vital Signs Temp 98.1 F 02/11/22 07:14 Pulse 96 02/11/22 07:14 Resp 15 02/11/22 07:14 BP 127/84 02/11/22 07:14 Pulse Ox 97 02/11/22 07:14 O2 Del Method 02/11/22 07:14 BMI result Body Mass Index 40.4 GI: Inspection: Yes normal to inspection, Yes incision (clean, dry and intact) and Yes obesity Palpation (GI): Soft to palpation Extrem: Right lower extremity: normal to inspection (no calf tenderness) Left lower extremity: normal to inspection (no calf tenderness) Objective Data Active Medications Lactated Ringer's (Lr) 1,000 mls @ 100 mls/hr IVCONT .Q10H BRYAN Lactated Ringer's (Lr) 1,000 mls @ 999 mls/hr IV .Q1H1M BRYAN Stop: 02/11/22 08:45 Last Admin: 02/11/22 07:19 Dose: 999 mls/hr Documented By: JUANA Dextrose ([email or web address]) 250 mls @ 0 mls/hr IV .Q0M PRN PRN Reason: Per Protocol Last Admin: 02/11/22 07:28 Dose: 250 mls/hr Documented By: JUANA Labs CBC & Chem 7: 02/12/22 05:30 02/12/22 05:30 Labs: Laboratory Results - last 24 hr 02/10/22 02/11/22 02/11/22 12:39 06:45 06:54 POC Glucose 69 Urine Test NEGATIVE COVID-19 (ALFIE) Negative COVID-19 Clin Com See Note 02/11/22 08:03 POC Glucose 138 H Urine Test COVID-19 (ALFIE) COVID-19 Clin Com Procedures Date of Service Date of Service: 02/12/22 Progress Note: A&P Assessment and plan (1) Morbid obesity: Status: Acute Assessment and Plan: s/p laparoscopic sleeve gastrectomy, lysis of adhesions and gastropexy Doing well Check am labs. If OK, will discharge home? (2) Insulin dependent type 1 diabetes mellitus: Status: Acute (3) Hypercholesterolemia: Status: Acute (4) Hypothyroid: Status: Acute (5) Steatosis, liver: Status: Acute (6) Liver fibrosis: Status: Acute (7) S/P laparoscopic sleeve gastrectomy: Status: Acute (8) Congenital intra-abdominal adhesions: Status: Acute Time Spent With Patient Time: Total time managing care of this patient today ____ minutes. Quality Stroke Does the patient have a stroke diagnosis?: No VTE Prior VTE?: No VTE Risk Level:: Surgical - moderate VTE Device Contraindication: N/A - Device Ordered VTE Drug Contraindication: Treatment Not Indicated
--- NOTE | 2022-02-11 11:32 | P.DS_ITS ---
DS: Providers Provider Date of Service: 02/12/22 Date of admission: 02/11/22 06:41 Primary care physician: Lakia Jaquez MD DS: Diagnosis Discharge Diagnosis (1) Morbid obesity: Status: Acute (2) Insulin dependent type 1 diabetes mellitus: Status: Acute (3) Hypercholesterolemia: Status: Acute (4) Hypothyroid: Status: Acute (5) Steatosis, liver: Status: Acute (6) Liver fibrosis: Status: Acute DS: Summary Hospital Course Hospital Course: ADMITTING DIAGNOSIS: morbid obesity, IDDM, hypothyroid, HLD ? DISCHARGE DIAGNOSIS: same, s/p laparoscopic sleeve gastrectomy, lysis of adhesions ? PAST SURGICAL HISTORY: tonsillectomy ? PROCEDURE: upper endoscopy, laparoscopic sleeve gastrectomy, lysis of adhesions ? DISCHARGE SUMMARY: ? History of Present Illness: ? The patient is a?26 year-old woman with a BMI of?44.2 kg/m2 and associated co- morbidities as described above. The patient had extensive work-up,lost?20.1 lbs preoperatively and was electively scheduled for laparoscopic, possible open sleeve gastrectomy and gastropexy. Risks and complications of the surgery were discussed with the patient in advance, particularly the possibility of , pulmonary embolism, anastomotic leak, bleeding, bowel injury, GERD, cardiac, renal or pulmonary complications. The patient understood all the risks and was in agreement with the surgical plan. ? Hospital Course: ? The patient underwent an uneventful laparoscopic sleeve gastrectomy with gastropexy and lysis of adhesions on the day of admission. Postoperatively, the patient was transferred to the surgical floor. The patient received IV Acetaminophen and IV dilaudid for pain control. Patient was started on bariatric phase 1 diet POD #0. On postoperative day one, the patient was feeling well without nausea, vomiting, fevers, or tachycardia. The patient had some mild incisional pain and the abdomen was soft. ? On the morning of postoperative day one, the patient was continued on 1 ounce of water or ice every half hour. During the day, the patient did fairly well, hav ing some incisional pain, but able to ambulate adequately and to tolerate liquids well. ? Since the patient is doing well, we decided that the patient was ready to be discharged. The patient was given instructions to follow-up with me next week and to call my office for any fever over 101, persistent abdominal pain, nausea, vomiting, GERD, symptoms of DVT such as calf tenderness, or leg swelling, or pulmonary embolism such as chest pain or shortness of breath. The patient was also instructed to drink 40-60 ounces of liquids per day using the 1-ounce cups. The patient had been given prescriptions for Tylenol for pain, Zofran prn for nausea, and pantoprazole and carafate previously. The patient was encouraged to ambulate and use the incentive spirometer. The patient was allowed to shower, but no baths, and encouraged to stay active at home. All of these instructions were given to the patient personally. All questions were answered and the patient understood all instructions, the instructions were also given to the patient in print. Time Spent with Patient Time attestation: Total time managing care of this patient today ____ minutes. Discharge coordination time: Less than 30 minutes Quality: Safe Use of Opioids Does Pt have an Active Cancer Diagnosis on the Problem List?: No Quality: Stroke Does the patient have a stroke diagnosis?: No Physical Exam Vital Signs: Vital Signs: Last Vital Signs Temp 98.1 F 02/11/22 07:14 Pulse 96 02/11/22 07:14 Resp 15 02/11/22 07:14 BP 127/84 02/11/22 07:14 Pulse Ox 97 02/11/22 07:14 O2 Del Method 02/11/22 07:14 BMI result Body Mass Index 40.4 DS: Data Data Completed and Pending Pending studies at discharge: Pending at discharge 02/11/22 10:21 Surgical [PTH] Routine Labs on day of discharge: Laboratory Results - last 24 hr 02/10/22 02/11/22 02/11/22 12:39 06:45 06:54 POC Glucose 69 Urine Test NEGATIVE COVID-19 ([facility]) Negative COVID-19 Clin Com See Note 02/11/22 08:03 POC Glucose 138 H Urine Test COVID-19 ([facility]) COVID-19 Clin Com Discharge Plan Discharge Anticipated Discharge Date/Time: 02/12/22 10:00 Patient Disposition: Home, Self-Care Discharge Diagnosis: s/p laparoscopic sleeve gastrectomy and lysis of adhesions Referrals: Lakia Pierce MD [Primary Care Provider] - 1 Week Discharge Medications: Continued levothyroxine 150 mcg tablet 1 tab PO QAM pantoprazole 40 mg tablet,delayed release (DR/EC) 40 mg PO DAILY Qty: 30 2RF sucralfate 100 mg/mL suspension 10 ml PO BID Qty: 400 2RF ondansetron HCl 4 mg tablet 4 mg PO Q12H Qty: 20 0RF Changed insulin glargine [Lantus Solostar U-100 Insulin] 100 unit/mL (3 mL) insulin pen 15 unit subcut BEDTIME Qty: 15 0RF Rx Instructions: discuss blood sugars with Dr Vinicio echeverria as your dose may change Held lovastatin 40 mg tablet 40 mg PO DAILY Hold Instructions: Resume on 02/15/22. Discontinued Vitron-C 65 mg iron- 125 mg tablet,delayed release (DR/EC) 1 tab PO DAILY Qty: 30 2RF Rx Instructions: swallow whole; do not chew/break/dissolve/open vitamin A palmitate 10,000 unit capsule 10,000 unit PO DAILY Qty: 30 2RF insulin lispro [Humalog KwikPen Insulin] 100 unit/mL insulin pen 0 - 20 unit subcut TID multivitamin Tablet 1 tab PO DAILY polyethylene glycol 3350 [Miralax] 17 gram powder in packet 17 g PO DAILY Qty: 14 0RF Rx Instructions: Mix each packet with 8oz of water and do 7 packets on 02/09/22 and another 7 packets on 02/10/22 Discharge Orders: Discharge Order (Routine); Ordered 02/12/22 Ordered By: Uriah Perez Activity on Discharge: No heavy lifting Stand Alone Forms: Patient Portal Discharge page Care Plan Goals: weight loss Health Concerns: morbid obesity Plan of Treatment: No tub baths, sex or returning to work until discussed at first post op appointment. No exercise, alcohol, tobacco or illegal drug use. Continue to use incentive spirometer hourly while awake. Walk in home for 5- 10 minutes every 2 hours during the first week. Follow all instructions in the bariatric handbook and call with any questions.Discharge Instructions 1. Please call your doctor or come back to the emergency room should any new symptoms arise. 2. You will receive a courtesy call from [facility] 24-48 hours after discharge. 3. Activity: abstain from alcohol, practice limited stair climbing, no bending, no driving, no exercise, no illicit substances, no lifting, no sex, no tub bath, no work. 4. Diet: continue as discussed with Dr. Perez. 5. Dressing Change/Wound Care: Your incision is covered by clear bandages and guaze underneath. If the area is tender, you may apply an ice pack for short intervals (no more than 20 minutes on, followed by at least 20 minutes off). Do not apply heat. Do not use creams, lotions, or topical antibiotics unless instructed to do so by your surgeon. These can cause infection or allergic reaction. 6. Call your doctor if: - Your temperature exceeds 101.5 F - You experience excessive pain or swelling - You have an unexpected reaction to medication - You have excessive bleeding - You experience continued vomiting/nausea - Your incision begins to separate - Your incision shows signs of infection such as increased redness, swelling, excessive pain, heat, or drainage (light blood or clear fluid is normal) 7. General instructions: No lifting greater than 5 lbs for the next 4 weeks[address] driving within 24 hours of taking narcotic pain medications. If you do not move your bowels in the next 2 days, please take milk of magnesia over the counter. Please follow the post op diet and do not advance your diet until you are seen in the office in about 2 weeks. Please walk around your home every hour or two to prevent blood clots from forming in your legs. You do not need to wake from sleeping to walk. Please sleep in a bed or couch to prevent kinking at the hips and knees. Please take your incentive spirometer (your lung fixed income director) home with you and use it for the next few days to prevent pneumonias. You may shower, no hot tubs, baths or swimming pools. Please call the office with any questions or concerns such as increasing abdominal pain, fever, chills, shortness of breath, chest pain, leg pain or swelling, or redness or drainage from your incisions. Please stay on stage 3 diet which includes sugar free clear liquids such as ice pops and jello and broth and crystal light. Avoid all carbonation. Please drink 3 protein shakes with at least 25-30 grams of protein daily or 3 of the Celebrate 4:1 shakes which can be purchased in our office. The Celebrate shakes have all of the bariatric vitamins you need if you consume these shakes. If you are drinking other protein shakes, you will need to purchase the Celebrate multivitamins and calcium that we provide in the office (they will provide all the vitamins you need). Please make sure you are consuming at least 40-60 ounces of water in addition to your 3 protein shakes daily. Do not hesitate to contact the office with any questions at . The patient's medical history has been reviewed and they are considered low risk for post op DVT and therefore DVT prophylaxis is not considered necessary. Travel after surgery was reviewed. The patient has not disclosed any travel plans during the first 30 days after surgery and they have been advised that within the first 30 days after surgery any bus, plane, train or car travel over 2 hours in duration is contraindicated due to the possibility of developing blood clots from immobility. Any travel, needs to include periods of ambulation of 10 minutes in duration every 2 hours.? The patient was instructed to discuss any plans for travel during this period with their bariatric surgeon. Assessment: stable s/p laparoscopic sleeve gastrectomy and lysis of adhesions
[2022-02-11] MEDS: Famotidine/PF 20 MG/2 ML VIAL IVPUSH ×2 (11:41→20:10)
[2022-02-11] MEDS: fentaNYL citrate/PF 100 MCG/2 ML VIAL 25 MCG IVPUSH (12:00)
[2022-02-11] MEDS: ondansetron HCL 4 MG/2 ML VIAL IVPUSH ×2 (12:07→20:11)
[2022-02-11 12:09] LABS: Anion Gap 14 (12-20); Blood Urea Nitrogen 10 mg/dL (9-16); Carbon Dioxide 25 mmol/L (22-29); Chloride 105 mmol/L (96-108); Creatinine Clr Calc Pharmacy 109.1; Estimated Glomerular Filt Rate > 60; Glucose Random 136 mg/dL (60-115); Potassium 5.2 mmol/L (3.3-5.1); Sodium 139 mmol/L (135-145)
[2022-02-11] MEDS: Metoclopramide HCl 10 MG/2 ML VIAL IVPUSH (13:14)
[2022-02-11] MEDS: Lactated Ringers 1,000 ML 125 ML IVCONT ×2 (13:27→20:15)
[2022-02-11 14:03] LABS: Glucose, Whole Blood 167 mg/dL (60-115)
[2022-02-11] MEDS: Insulin Lispro 100 UNIT/ML 3 ML VIAL SUBCUT ×3 (14:07→20:10)
--- NOTE | 2022-02-11 14:18 | PHA.MEDREC ---
Pharmacy Consult ? Medication Reconciliation Pharmacy has completed the medication reconciliation. Patient was taking 39 units of lantus and up to 135 units of humalog a day via [employer] delivery system. For the past few weeks, due to the nature of her diet, she is using only between 0-20 units tid with meals/high blood sugar on a sliding scale. She was also told to cut down on her lantus to 15 units. Raymond
[2022-02-11] MEDS: ceFAZolin Sodium/Dextrose,Iso 2 GM/50 ML PIGGYBACK IV (14:26)
[2022-02-11] MEDS: Acetaminophen 1,000 MG/100 ML PIGGYBACK 16.7 MG IV ×2 (15:13→20:10)
[2022-02-11] MEDS: 0.9 % Sodium Chloride Flush 3 ML SYRINGE IVFLUSH (20:11)
[2022-02-11] MEDS: Insulin Glargine,Hum.rec.anlog 100 UNIT/ML 10 ML VIAL 15 UNIT SUBCUT (20:11)
[2022-02-12] VITALS: BP 107/62; PULSE 84; RESP 18; TEMP 37.1; O2SAT 96
[2022-02-12] MEDS: Acetaminophen 1,000 MG/100 ML PIGGYBACK 16.7 MG IV ×2 (02:06→09:09)
[2022-02-12] MEDS: Metoclopramide HCl 10 MG/2 ML VIAL IVPUSH ×2 (02:11→09:11)
[2022-02-12] MEDS: Lactated Ringers 1,000 ML 125 ML IVCONT (03:38)
[2022-02-12 04:00] VITALS: BP 101/59; PULSE 86; RESP 18; TEMP 37.1; O2SAT 98
[2022-02-12 04:08] LABS: Glucose, Whole Blood 183 mg/dL (60-115)
[2022-02-12] MEDS: ondansetron HCL 4 MG/2 ML VIAL IVPUSH (04:18)
[2022-02-12] MEDS: Insulin Lispro 100 UNIT/ML 3 ML VIAL SUBCUT ×2 (04:18→08:58)
[2022-02-12 06:09] LABS: MANUAL DIFF FLAG NO
[2022-02-12 06:25] LABS: Basophils Percent Auto 0.1 % (0-2); Hematocrit 37.6 % (37.0-47.0); Hemoglobin 11.7 g/dl (12.0-16.0); Imm Gran Abs Auto 0.03 X10*3/uL (0.00-0.03); Imm Gran Pct Auto 0.3 % (0.0-0.4); Lymphocytes Absolute Auto 1.3 X10*3/uL (1.2-4.9); Lymphocytes Percent Auto 12.3 % (20-40); Mean Corpuscular HGB Conc 31.1 g/dl (31.0-35.0); Mean Corpuscular Volume 83.6 fL (80.0-98.0); Mean Platelet Volume 9.5 fL (9.4-12.3); Monocytes Absolute Auto 0.6 X10*3/uL (0.1-1.2); Monocytes Percent Auto 5.9 % (2-11); Neutrophils Absolute Auto 8.8 x10*3/uL (2.0-8.3); Neutrophils Percent Auto 81.4 % (45-73); Platelet Count 354 X10*3/uL (160-400); Red Cell Distribution Width 16.7 % (11.0-16.0); White Blood Count 10.8 X10*3/uL (4.8-10.8)
[2022-02-12 06:56] LABS: Anion Gap 15 (12-20); Blood Urea Nitrogen 7 mg/dL (9-16); Calcium 8.9 mg/dL (8.4-10.2); Carbon Dioxide 24 mmol/L (22-29); Chloride 103 mmol/L (96-108); Creatinine Clr Calc Pharmacy 112.1; Estimated Glomerular Filt Rate > 60; Glucose Random 187 mg/dL (60-115); Potassium 4.5 mmol/L (3.3-5.1); Sodium 137 mmol/L (135-145)
--- NOTE | 2022-02-12 07:54 | HO.POSTANES ---
Post Anesthesia Evaluation Post Anesthesia Evaluation Vital Signs: Vital Signs Temp Pulse Resp BP Pulse Ox O2 Del Method 02/12/22 04:00 98.7 F 86 18 101/59 L 98 Room Air 02/12/22 00:00 98.8 F 84 18 107/62 96 Room Air Anesthesia: General Endotracheal-GETA Mental Status: Awake Pain Control: Satisfactory Nausea/Vomiting: Mild (Yesterday. Resolved) Hydration: Adequate Anesthesia-Related Issues: No Anes. Related Issues
[2022-02-12 08:00] VITALS: BP 126/63; PULSE 109; RESP 18; TEMP 37; O2SAT 96
[2022-02-12 08:43] VITALS: O2SAT 94
--- NOTE | 2022-02-12 08:43 | MHC.CM.PN ---
CM MET WITH PT. LIVES IN A DUPLEX WITH SP[facility]. NO SERVICES OR DME PRIOR. 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 NO HCP, DECLINES. NO COVID VAX. PCP DP: PT MEDICALLY CLEARED FOR DC HOME, NO SERVICES. [facility] WILL TRANSPORT. RN AWARE.
[2022-02-12] MEDS: Famotidine/PF 20 MG/2 ML VIAL IVPUSH (08:58)
[2022-02-12 09:11] VITALS: RESP 18
[2022-02-12] MEDS: HYDROmorphone HCl 0.5 MG/0.5 ML SYRINGE 0.25 MG IVPUSH (09:11)
== END 2022-02-12 11:00 | disposition home or self-care (01) | DRG 403 ==
LOC: HO.SSSA 11:35 → HO.S3 12:53
PROVIDERS: Nurse Practitioner; Physician Assistant Surgical; Admitting Provider Surgery; PCP Internal Medicine; Referring Provider Pediatrics; Visit Provider Surgery
PROC: 0DB64Z3 Excision of Stomach, Percutaneous Endoscopic Approach, Vertical (ICD-10-PCS; CPT 43845; principal; 2022-02-11 08:10)
DX: E66.01 Morbid (severe) obesity due to excess calories (principal); K74.00 Hepatic fibrosis, unspecified; Q43.3 Congenital malformations of intestinal fixation; E03.9 Hypothyroidism, unspecified; K76.0 Fatty (change of) liver, not elsewhere classified; E78.00 Pure hypercholesterolemia, unspecified; Z68.41 Body mass index [BMI] 40.0-44.9, adult; E11.9 Type 2 diabetes mellitus without complications; K82.4 Cholesterolosis of gallbladder; K21.9 Gastro-esophageal reflux disease without esophagitis; Z20.822 Contact with and (suspected) exposure to COVID-19; Z86.16 Personal history of COVID-19; Z91.013 Allergy to seafood; Z88.8 Allergy status to other drugs, medicaments and biological substances; Z79.4 Long term (current) use of insulin; Z79.890 Hormone replacement therapy; Z79.899 Other long term (current) drug therapy
CPT/HCPCS: 36415; 80048; 80053; 80061; 81025; 82947; 83036; 83525; 84439; 84443; 85014; 85018; 85025; 85610; 85730; 86140; 86850; 86900; 86901; 87635; 88307; 88342; A4649; C9088; J0131; J0690; J1100; J1170; J2250; J2370; J2405; J2550; J2765; J2795; J3010

== ENCOUNTER → 2022-02-16 13:09 | Outpatient (BNVA) | payer OTHER, SELFPAY | PROVIDERS: PCP Internal Medicine; Visit Provider Physician Assistant Surgical | DX: Z13.89 Encounter for screening for other disorder (principal) ==

== ENCOUNTER → 2022-03-03 13:32 | Outpatient (BNVA) | payer OTHER, SELFPAY | PROVIDERS: PCP Internal Medicine; Visit Provider Physician Assistant Surgical | DX: E66.9 Obesity, unspecified (principal); E10.9 Type 1 diabetes mellitus without complications; Z68.36 Body mass index [BMI] 36.0-36.9, adult; Z90.3 Acquired absence of stomach [part of]; Z79.4 Long term (current) use of insulin | CPT/HCPCS: 99212 ==

== ENCOUNTER → 2022-03-17 13:42 | Outpatient (BNVA) | payer OTHER, SELFPAY | PROVIDERS: PCP Internal Medicine; Visit Provider Physician Assistant Surgical | DX: E66.9 Obesity, unspecified (principal); Z98.84 Bariatric surgery status; Z68.35 Body mass index [BMI] 35.0-35.9, adult | CPT/HCPCS: 99212 ==

== ENCOUNTER → 2022-04-19 13:57 | Outpatient (BNVA) | payer OTHER, SELFPAY | PROVIDERS: PCP Internal Medicine; Visit Provider Physician Assistant Surgical | DX: E66.9 Obesity, unspecified (principal); E10.9 Type 1 diabetes mellitus without complications; Z98.84 Bariatric surgery status; Z68.34 Body mass index [BMI] 34.0-34.9, adult | CPT/HCPCS: 99212 ==

== ENCOUNTER → 2022-05-25 14:13 | Outpatient (BNVA) | payer OTHER, SELFPAY | PROVIDERS: PCP Internal Medicine; Visit Provider Physician Assistant Surgical | DX: E66.9 Obesity, unspecified (principal); E10.9 Type 1 diabetes mellitus without complications; Z98.84 Bariatric surgery status; Z68.32 Body mass index [BMI] 32.0-32.9, adult | CPT/HCPCS: 99212 ==

== ENCOUNTER → 2022-07-05 13:37 | Outpatient (BNVA) | payer OTHER, SELFPAY | PROVIDERS: PCP Internal Medicine; Referring Provider Internal Medicine; Visit Provider Physician Assistant Surgical | DX: E66.9 Obesity, unspecified (principal); Z98.84 Bariatric surgery status; Z68.30 Body mass index [BMI] 30.0-30.9, adult | CPT/HCPCS: 99212 ==

== ENCOUNTER 2022-09-29 10:24 | Outpatient (REF) | payer OTHER, SELFPAY ==
[2022-09-29 10:56] LABS: MANUAL DIFF FLAG NO
[2022-09-29 11:19] LABS: Basophils Percent Auto 0.8 % (0-2); Eosinophils Absolute Auto 0.1 X10*3/uL (0.0-0.4); Eosinophils Percent Auto 2.6 % (0-4); Hematocrit 38.8 % (37.0-47.0); Hemoglobin 12.4 g/dl (12.0-16.0); Imm Gran Abs Auto 0.01 X10*3/uL (0.00-0.03); Imm Gran Pct Auto 0.2 % (0.0-0.4); Lymphocytes Absolute Auto 1.7 X10*3/uL (1.2-4.9); Lymphocytes Percent Auto 33.9 % (20-40); Mean Corpuscular Volume 84.5 fL (80.0-98.0); Mean Platelet Volume 8.7 fL (9.4-12.3); Monocytes Absolute Auto 0.4 X10*3/uL (0.1-1.2); Monocytes Percent Auto 7.4 % (2-11); Neutrophils Absolute Auto 2.7 x10*3/uL (2.0-8.3); Neutrophils Percent Auto 55.1 % (45-73); Platelet Count 368 X10*3/uL (160-400); Red Blood Count 4.59 X10*6/uL (4.20-5.50); Red Cell Distribution Width 14.7 % (11.0-16.0)
[2022-09-29 11:23] LABS: Estimated Average Glucose 148 mg/dL; Hemoglobin A1c % 6.8 %
[2022-09-29 11:51] LABS: Alanine Aminotransferase 21 U/L (0-31); Albumin Level 4.1 g/dL (3.5-5.0); Alkaline Phosphatase 56 U/L (39-117); Anion Gap 15 (12-20); Aspartate Amino Transferase 15 U/L (5-31); Bilirubin Total 1.2 mg/dL (0.0-1.0); Blood Urea Nitrogen 13 mg/dL (9-16); C Reactive Protein 0.19 mg/dL (< or = 0.50); Calcium 9.3 mg/dL (8.4-10.2); Carbon Dioxide 26 mmol/L (22-29); Chloride 105 mmol/L (96-108); Cholesterol 184 mg/dL; Estimated Glomerular Filt Rate > 60; Glucose Random 133 mg/dL (60-115); HDL Cholesterol 60 mg/dL; Iron 114 mcg/dL (30-160); LDL Cholesterol Calculated 112 mg/dl; Percent Iron Saturation 30 % (15-50); Potassium 4.5 mmol/L (3.3-5.1); Sodium 141 mmol/L (135-145); Total Iron Binding Capacity 375 mcg/dL (228-428); Total Protein 7.3 g/dL (6.5-8.0); Triglycerides 62 mg/dL; Unsaturated Iron Binding 261 ug/dL
[2022-09-29 12:07] LABS: Ferritin 9 ng/mL (10-122); Insulin 34 uU/mL (2-29); TSH reflex Free T4 1.91 uIU/mL (0.32-4.0)
[2022-09-29 12:23] LABS: Folate 14.6 ng/mL (> or = 4.0); Vitamin B12 1608 pg/mL (200-900)
[2022-10-03 15:43] LABS: Zinc 90 mcg/dL (60-130)
[2022-10-05 08:43] LABS: PTHI 54
[2022-10-05 08:44] LABS: Calcium (PTHI) 9.3
[2022-10-05 15:18] LABS: Vitamin B1 20 nmol/L (8-30)
[2022-10-06 14:58] LABS: Vitamin A 30 mcg/dL (38-98)
== END 2022-09-29 10:25 | disposition home or self-care (01) ==
LOC: HO.LAB 10:24
PROVIDERS: PCP Internal Medicine; Visit Provider Physician Assistant Surgical
DX: Z98.84 Bariatric surgery status (principal)
CPT/HCPCS: 36415; 80053; 80061; 82306; 82607; 82728; 82746; 83036; 83525; 83540; 83970; 84425; 84443; 84590; 84630; 85025; 86140

== ENCOUNTER 2023-01-27 09:37 | Outpatient (AMB) | payer OTHER, SELFPAY ==
--- NOTE | 2023-01-27 09:50 | A.OFFVIS_ITS ---
Intake VS Expanded 01/27/23 09:59 BP 115/69 Blood Pressure Location Rt brachial Blood Pressure Position Sitting Pulse 95 Pulse Source Pulse Oximeter Temp 97.4 F Temperature Source Temporal Artery Scan Pulse Oximetry 97 Oxygen Delivery Method Room Air Height 4 ft 11 in Weight 162 lb 12.8 oz BMI 32.9 Body Fat % 37.0 Body Fat Mass 60.2 Fat Free Mass 102.6 Visceral Fat Rating 6.0 Body Water % 45.4 Body Water Mass 73.8 Muscle Mass/Score 97.2 Basal Metabolic Rate/Score 1,446 Intake Visit Reasons: (OV) PO LSG 02/11/22 Allergies shrimp Allergy (Verified 01/27/23 09:58) Hives, Swelling, Itchy Throat insulin detemir [From Levemir U-100 Insulin] Adverse Reaction (Intermediate, Verified 01/27/23 09:58) Rash metformin Adverse Reaction (Intermediate, Verified 01/27/23 09:58) Diarrhea Medication List - Last Reconciled 01/27/23 by XIMENA Iqbal acetaminophen ER (Tylenol 8 Hour) 650 mg PO Q8H PRN clotrimazole 1% 1 appl topical BID cyclobenzaprine 10 mg PO TID PRN insulin glargine (Lantus Solostar U-100 Insulin) 15 units (0.15 mL) subcut BEDTIME insulin lispro (Humalog KwikPen (U-100) Insulin) 5 units subcut TID levothyroxine 1 tab PO QAM lovastatin 40 mg PO DAILY ondansetron 4 mg PO Q8H PRN vitamin A palmitate 10,000 units PO DAILY HPI HPI Comments History of Present Illness Details This?is a?27?yo female who is s/p LSG 02/11/2022. Presents for 1 year post op visit. Weight at last visit on 07/05/2022 was 153 pounds with a BMI of 30.9, weight today is 162.8 pounds, representing a 9.8 pound weight gain with a BMI today of 32.8.? No complaints of nausea, emesis, abdominal pain or reflux, or constipation. Still on Lantus 35 units. Has followup with endocrinology scheduled for next month. Present meal plan includes: 2 shakes (Orgain 2 scoops each) with 2 s mall meals with 1-2oz protein each Pt reports difficulty with red meats, but will eat chicken/fish struggling with lower blood sugars, will have apple juice or quick sources of carbohydrates was working 70 hours per week, hard to follow meal plan precisely Exercise routine includes: Treadmill or stepper up to 60min at home- 4x/week, or outdoor walking limited in exercise due to high workload Pt reports problems of excess skin of abdomen. She has noticed that with exercise, particularly running, she is very uncomfortable because the skin flops and slaps around, causing discomfort and making exercise more difficult. She has noticed redness in the skinfold which gets very hot. Rashes have worsened recently. Did the patient ever have any of these conditions and are they resolved or still being treated? GERD: rare, if triggered [place] DELIA:? never DM:? +? HTN:? never Hyperlipidemia:? resolved Post op complications:? none [facility] Medical History (Updated 08/20/22 @ 15:01 by Boogie Cardozo CNP) History of hypothyroidism History of COVID-19 Irregular menses Acid reflux Obesity Elevated cholesterol Diabetes Insomnia Surgical History S/P laparoscopic sleeve gastrectomy Hx of esophagogastroduodenoscopy Hx of tonsillectomy Family History Mother Thyroid condition Father No problems noted. Social History Are you a primary care attendant to a significant other at home: Yes (Grandmother) Do you presently have visiting nurse or other home services: No Alcohol intake: former Patient Tobacco Use Status: Never used Tobacco Second Hand Smoke Exposure: No service: No Current occupational status: employed Physical Exam Const General: cooperative, comfortable and no acute distress Orientation/consciousness: patient oriented x3 GI Other: soft, nontender, nondistended, incisions well healed, no hernia, no masses Neuro General: patient oriented x3 Assessment & Plan Assessment & Plan (1) S/P laparoscopic sleeve gastrectomy: Comment: 02/11/22 Uriah Perez MD Code(s): Z98.84 - Bariatric surgery status (2) Obesity: Code(s): E66.9 - Obesity, unspecified Plan New meal plan to help facilitate weight loss and for improved blood sugar control: 9:30am-11:30am Celebrate 4:1 2 scoops in 8oz UAM 1-3pm 1 scoop 4:30-6:30pm 1 scoop 8pm dinner- 4 forks protein, 4 forks salad/veg (or 2 forks veg, 2 forks healthy carb) Pt motivated to resume exercise, plans to restart treadmill and resistance band workouts. Clotrimazole ointment ordered for rashes of excess skin. RTC 3 months. Patient is obese and is not considered stable at this time. I spent a total of 30 minutes reviewing/updating records, examining the patient and counseling the patient on weight management as detailed above. Medications: New clotrimazole 1% 1 appl topical BID 45 grams 3RF Coding Level of Care Code Est Pt Level 4 (99172) Diagnoses S/P laparoscopic sleeve gastrectomy Z98.84 Obesity E66.9
[2023-01-27 09:59] VITALS: BP 115/69; PULSE 95; TEMP 36.3; O2SAT 97; BMI 32.9
== END 2023-01-27 10:29 | disposition home or self-care (01) ==
PROVIDERS: PCP Internal Medicine; Visit Provider Physician Assistant Surgical
DX: E66.9 Obesity, unspecified (principal); Z68.32 Body mass index [BMI] 32.0-32.9, adult; Z90.3 Acquired absence of stomach [part of]; Z98.84 Bariatric surgery status
CPT/HCPCS: 99214

== ENCOUNTER → 2023-01-27 09:37 | Outpatient (BNVA) | payer OTHER, SELFPAY | PROVIDERS: PCP Internal Medicine; Visit Provider Physician Assistant Surgical ==